=== PATIENT | male | born 1995 | race Caucasian/White ===

== ENCOUNTER 2023-06-12 20:38 | Inpatient (IN) | payer MEDICAID, SELFPAY ==
--- NOTE | ~2023-06-12 | MR_ITS ---
MRI of the cervical spine Clinical History: Neck pain, radiculopathy Technique: Axial T2-weighted and gradient images, and sagittal T1-weighted, T2-weighted, and STIR prema ges were acquired. Following intravenous administration of 15 cc MultiHance gadolinium, T1-weighted f at-sat imaging was performed in the axial and sagittal planes. Findings: There is no fracture or subluxation of the cervical spine. Vertebral bodies maintain normal height. No suspicious bone marrow signal abnormality seen. No significant disc bulge or herniation seen at any cervical level. There is probable minimal facet a rthropathy at C4-C5, possible minimal bilateral neural foraminal narrowing. No other spinal canal stu nosis or neural foraminal narrowing evident in the remainder of the cervical spine. No epidural mass or collection seen. No abnormal signal seen in the spinal cord. No abnormal postcontrast enhancement identified. Impression: Probable minimal degenerative spondylosis at C4-C5, as above. Reviewed, dictated and finalized at [facility]. Impression: Probable minimal degenerative spondylosis at C4-C5, as above.
--- NOTE | ~2023-06-12 | CT_ITS ---
EXAMINATION: CTA brain carotid DATE: 06/12/2023 23:50 INDICATION: Headache TECHNIQUE: Computed tomographic angiography (CTA) of the head was performed without and with 200 mL O mnipaque-350 intravenous contrast. CTA of the neck was performed with intravenous contrast. The dose- length product was 2087.23 mGy-cm. Maximum intensity projection and volume rendered 3D-reconstruction s were created by the technologist on a separate workstation. Automated exposure control and iterativ e reconstruction technique were employed. COMPARISON: None. FINDINGS: HEAD CTA: There is no intracranial hemorrhage, acute infarction, or abnormal mass lesion. The ventric les are normal. There is no abnormal mass effect or midline shift. The velázquez-white matter differentiat ion is normal. The basal cisterns are patent. The orbits are normal. The paranasal sinuses, mastoids and calvarium are normal. There is no significant stenosis of the basilar artery or posterior cerebral arteries. There is no si gnificant stenosis of the intracranial internal carotid arteries or the anterior or middle cerebral a rteries. The anterior communicating artery and posterior communicating arteries are normal. There is no aneurysm. NECK CTA: The thyroid gland is unremarkable. The submandibular and parotid glands are symmetric. Ther e is no lymphadenopathy. There are no masses identified. The airway is unremarkable. The superior med iastinum is unremarkable. There are no osseous abnormalities. There is 0% stenosis of the proximal right internal carotid artery relative to normal distal artery l umen diameter (NASCET criteria). There is 0% stenosis of the proximal left internal carotid artery re lative to normal distal artery lumen diameter. IMPRESSION: 1. No acute intracranial abnormality. Normal head CTA. 2. 0% stenosis of the proximal right internal carotid artery relative to normal distal artery lumen d iameter (NASCET criteria). 3. 0% stenosis of the proximal left internal carotid artery relative to normal distal artery lumen di ameter. Reviewed, dictated and finalized at location [facility]. IMPRESSION: 1. No acute intracranial abnormality. Normal head CTA. 2. 0% stenosis of the proximal right internal carotid artery relative to normal distal artery lumen diameter (NASCET criteria). 3. 0% stenosis of the proximal left internal carotid artery relative to normal distal artery lumen diameter.
--- NOTE | ~2023-06-12 | NM_ITS ---
EXAMINATION: NM stress w perf spect multi DATE: 06/14/2023 14:34 INDICATION: Chest pain. TECHNIQUE: Rest images were obtained following intravenous administration of 9.7 mCi Tc99m tetrofosmi n (Myoview). The patient performed an exercise activity. At peak exercise, 31.054 mCi Tc99m tetrofosm in (Myoview) was administered intravenously, and supine and prone stress images were obtained. Data w as reconstructed into short axis and horizontal and vertical long axis SPECT images. Gated SPECT imag es were also obtained. COMPARISON: Chest CT 06/12/2023 FINDINGS: There is a large, severe, partially reversible perfusion defect involving left ventricular apex, apical inferior and apical lateral segments, and apical to mid anterior segments, consistent wi th mixed infarct and ischemia.. There is no segmental wall motion abnormality. Left ventricular eje ction fraction measures 65%. IMPRESSION: 1. Large area of severe mixed ischemia and infarct involving left ventricular apex, apical inferior a nd apical lateral segments, and apical to mid anterior segments.. 2. Normal left ventricular ejection fraction measuring 65%. Reviewed, dictated and finalized at location [facility]. IMPRESSION: 1. Large area of severe mixed ischemia and infarct involving left ventricular a pex, apical inferior and apical lateral segments, and apical to mid anterior se gments.. 2. Normal left ventricular ejection fraction measuring 65%.
--- NOTE | ~2023-06-12 | XR_ITS ---
EXAMINATION: XR chest 2V DATE: 06/12/2023 21:37 INDICATION: Chest pain TECHNIQUE: PA and lateral views of the chest are obtained. COMPARISON: None available FINDINGS: The lungs are free of acute opacities. No pleural effusion or pneumothorax. The cardiomedia stinal silhouette is normal. The visualized bones and soft tissues are unremarkable. IMPRESSION: 1. No acute cardiopulmonary abnormality. Reviewed, dictated and finalized at location [facility].
--- NOTE | ~2023-06-12 | CT_ITS ---
EXAMINATION: CTA chest PE protocol DATE: 06/12/2023 23:51 INDICATION: Chest pain TECHNIQUE: Computed tomography angiography (CTA) of the chest was performed with 200 mL Omnipaque-350 intravenous contrast timed to evaluate the pulmonary arteries. Coronal maximum intensity projection 3D-reconstructions were created by the technologist. The dose-length product (DLP) was 516.69 mGy-cm. Automated exposure control and iterative reconstruction technique were employed. COMPARISON: None. FINDINGS: The pulmonary arteries are well-opacified. No pulmonary embolism is identified. There is mi ld dependent atelectasis. The lungs are free of focal airspace opacities. No pleural effusion or pneu mothorax. No pathologically enlarged thoracic lymph nodes are identified. The heart size is normal. IMPRESSION: 1. No pulmonary embolism or acute cardiopulmonary abnormality. Reviewed, dictated and finalized at location [facility].
--- NOTE | ~2023-06-12 | MR_ITS ---
MRI of the brain Clinical History: Upper extremity numbness Technique: Axial and sagittal T1-weighted images were acquired. These were followed by axial T2-weigh juan m, diffusion weighted, gradient, and FLAIR images. Following intravenous administration of 15 cc Mu ltiHance gadolinium, T1-weighted fat-sat imaging was performed in the axial, coronal, and sagittal pl anes. Findings: There is no abnormal signal in the brain parenchyma. No acute infarct, intracranial hemorrh age, or mass lesion. Prominent cisterna magna noted. Ventricles and subarachnoid spaces are otherwise unremarkable. Orbits are unremarkable. Paranasal sinuses and mastoid air cells are clear. Major intracranial flow voids a re intact. Sagittal midline structures are intact. No abnormal postcontrast enhancement identified. IMPRESSION: Prominent cisterna magna, otherwise unremarkable exam. Reviewed, dictated and finalized at [facility].
--- NOTE | 2023-06-12 20:40 | ECG_ITS ---
Measurements Intervals [place] Rate: 87 P: 39 OK: 119 QRS: 8 QRSD: 94 T: 112 QT: 334 QTc: 404 Interpretive Statements SINUS RHYTHM WITH SHORT OK INTERVAL ABNORMAL ECG ABNORMAL QRS-T ANGLE [QRS-T AXIS DIFFERENCE > 60] NO PREVIOUS ECG AVAILABLE FOR COMPARISON Electronically Signed On 06-13-2023 10:28:15 CDT by Joey Lr M.D.
[2023-06-12 20:47] VITALS: BP 134/88; PULSE 87; RESP 16; TEMP 36.5; O2SAT 100
[2023-06-12 20:59] LABS: Basophils Absolute Auto 0.1 K/mm3 (0.0-0.1); Basophils Percent Auto 0.6 % (0.2-1.2); Eosinophils Absolute Auto 0.1 K/mm3 (0-0.3); Eosinophils Percent Auto 0.8 % (0-4.4); Hematocrit 48.1 % (42.0-52.0); Hemoglobin 16.7 g/dL (14.0-18.0); Immature Granulocyte Absolute 0.03 K/mm3 (0.00-0.031); Immature Granulocyte Percent A 0.3 % (0-0.5); Lymphocytes Absolute Auto 3.67 K/mm3 (0.9-3.2); Mean Corpuscular HGB Conc 34.7 g/dl (32-36); Mean Corpuscular Hemoglobin 31.9 pg (26-34); Mean Corpuscular Volume 91.8 fl (80-100); Mean Platelet Volume 9.6 fl (7.4-10.4); Monocytes Absolute Auto 0.8 K/mm3 (0.1-0.6); Monocytes Percent Auto 6.7 % (2.6-8.5); Neutrophils Absolute Auto 6.5 K/mm3 (1.3-6.7); Neutrophils Percent Auto 58.6 % (45.5-73.1); Platelet Count Result 263 k/mm3 (150-375); Red Blood Count 5.24 M/mm3 (4.6-6.20); Red Cell Distribution Width 12.1 % (11.5-14.5); White Blood Count 11.1 K/mm3 (4.5-10.0)
[2023-06-12 21:07] LABS: Alanine Aminotransferase 24 U/L (6-50); Albumin Level 4.9 g/dL (3.5-5.1); Alkaline Phosphatase 66 U/L (38-126); Anion Gap 8 mmol/L (8-16); Aspartate Amino Transferase 37 U/L (17-59); Bilirubin,Total 0.6 mg/dL (0.2-1.3); Blood Urea Nitrogen 12 mg/dL (9-20); Calcium 9.4 mg/dL (8.4-10.2); Carbon Dioxide 25 mmol/L (22-30); Chloride 101 mmol/L (98-107); Estimated CRCL calculation 111 ml/min; Estimated Glomerular Filt Rate > 60; Glucose 94 mg/dL (65-110); Lipase 151 U/L (23-300); Potassium 3.5 mmol/L (3.4-5.0); Sodium 134 mmol/L (137-145)
[2023-06-12 21:08] LABS: Prothrombin Time 13.9 Seconds (11.1-14.7)
[2023-06-12 21:09] LABS: Partial Thromboplastin Time 29.2 SECONDS (22.3-36.8)
[2023-06-12 21:22] LABS: Troponin I 0.488 ng/mL (0.000-0.034)
--- NOTE | 2023-06-12 21:46 | ED.ARRPALP ---
HPI - Arrhythmia/Palpitations General Chief Complaint: Arrhythmia/Palpitations Stated Complaint: palpitations and CP x several days Time Seen by Provider: 06/12/23 21:41 History of Present Illness HPI narrative: Patient presents the emergency department from home with a friend. He has had intermittent episodes of left-sided chest burning that radiates into his left arm for the past 4 days. Episodes last 10 minutes at a time roughly. Then 2 days ago he had an episode of left arm going cold . Associated with a severe left-sided headache. Headache has resolved. He also felt short of breath at that time. Denies past medical history. Related Data Allergies Allergy/AdvReac Type Severity Reaction Status Date / Time No Known Allergies Allergy Verified 06/12/23 21:55 Review of Systems Review of Systems: Review of systems negative except what is documented in the HPI Exam Narrative: GENERAL: Well-appearing, well-nourished, and in no acute distress. HEAD: Normocephalic, atraumatic. EYES: PERRLA and EOMI. ENT: Nares clear, no rhinorrhea or epistaxis. Mucous membranes moist. NECK: Supple. CHEST: Clear to auscultation. No respiratory distress. HEART: Regular rate and rhythm. ABDOMEN: Soft, nontender, nondistended. EXTREMITIES: Normal range of motion. No edema. SKIN: Warm, dry, no rash. NEURO: No focal deficits. Alert and oriented x3. PSYCH: Normal mood and affect. Course Course Emergency Course: CT head and chest negative for acute pathology. His repeat troponin was slightly lower than initial troponin. Due to elevated troponins and chest discomfort for the past few days patient is admitted to observation to be seen by cardiology in the morning. We will hold heparin drip due to downtrending troponin Vital Signs Vital signs: Vital Signs Temperature 36.5 C 06/12/23 20:47 Pulse Rate 87 06/12/23 20:47 Respiratory Rate 16 06/12/23 20:47 Blood Pressure 134/88 06/12/23 20:47 Pulse Oximetry 100 06/12/23 20:47 Temperature 36.5 C 06/12/23 20:47 Pulse Rate 82 06/13/23 00:25 Respiratory Rate 15 06/13/23 00:25 Blood Pressure 123/81 06/13/23 00:25 Pulse Oximetry 100 06/13/23 00:25 MDM - Arrhythmia/Palpitations MDM Narrative Medical decision making narrative: CBC ordered and grossly unremarkable. White blood cell count 11. CMP also ordered and unremarkable. Troponin 0.488. Very unlikely to be CAD. CT chest and head ordered [address] chest and head CT are grossly unremarkable. Troponins are still elevated but trending down. Will admit for observation and cardiology consult tomorrow. He has not had any active chest pain and due to troponin trending down we will hold heparin for now Lab Data 06/12/23 20:52 06/12/23 20:52 Labs: Lab Results 06/12/23 06/13/23 06/13/23 Range/Units 20:52 00:01 01:15 WBC 11.1 H (4.5-10.0) K/mm3 RBC 5.24 (4.6-6.20) M/mm3 Hgb 16.7 (14.0-18.0) g/dL Hct 48.1 (42.0-52.0) % MCV 91.8 (80-100) fl MCH 31.9 (26-34) pg MCHC 34.7 (32-36) g/dl RDW 12.1 (11.5-14.5) % Plt Count 263 (150-375) k/mm3 MPV 9.6 (7.4-10.4) fl Immature Gran % (Auto) 0.3 (0-0.5) % Neut % (Auto) 58.6 (45.5-73.1) % Lymph % (Auto) 33.0 (18.3-44.2) % Leake % (Auto) 6.7 (2.6-8.5) % Eos % (Auto) 0.8 (0-4.4) % Baso % (Auto) 0.6 (0.2-1.2) % Lymph # (Auto) 3.67 H (0.9-3.2) K/mm3 Leake # (Auto) 0.8 H (0.1-0.6) K/mm3 Eos # (Auto) 0.1 (0-0.3) K/mm3 Baso # (Auto) 0.1 (0.0-0.1) K/mm3 Abs Immat Gran (auto) 0.03 (0.00-0.031) K/mm3 Absolute Neuts (auto) 6.5 (1.3-6.7) K/mm3 Absolute Nucleated RBC 0.0 (0.0-0.012) K/mm3 Nucleated RBC % 0.0 (0.0-0.2) % PT 13.9 (11.1-14.7) Seconds INR 1.0 APTT 29.2 (22.3-36.8) SECONDS Sodium 134 L (137-145) mmol/L Potassium 3.5 (3.4-5.0) mmol/L Chloride 101 (98-107) mmol/L C
[2023-06-12 21:49] VITALS: PULSE 89
[2023-06-12 21:50] VITALS: BP 153/94; PULSE 86; RESP 18; O2SAT 99
[2023-06-12 22:32] VITALS: BP 132/87; PULSE 92; RESP 14; O2SAT 98
[2023-06-13] VITALS (18 sets, daily range): BP systolic 106–137; BP diastolic 71–93; PULSE 62–105; RESP 14–24; TEMP 36.4–36.9; O2SAT 97–100
--- NOTE | 2023-06-13 | ECHO_ITS ---
Patient Info Name: Jerry oTbias Age: 27 years : 1995 Gender: Male Ht: 74 in Wt: 165 lbs BSA: 1.97 m2 HR: 76 bpm BP: 106 / 71 mmHg Heart Rhythm: Sinus Rhythm Technical Quality: Fair Exam Date: 06/13/2023 4:39 PM Exam Location: [facility] Pulmonary Patient Status: Inpatient Admit Date: 06/13/2023 Staff Ordering Physician: Joey Lr MD Electric Motor Assembler And Tester: Linda Hutchison RDCS Attending Provider: Teja Layne MD Referring Physician: Adeline NATARAJAN; Exam Type: CA echo dop color flow w con Study Info Indications R07.89 - Other chest pain Complete two-dimensional, color flow and Doppler transthoracic echocardiogram is performed with contrast to opacify the left ventricle and to improve the deliniation of the left ventricle endocardial borders. Contrast/Agitated Saline Contrast/Ag. Saline: Definity Amount: 2.00 ml Administered By: Linda Hutchison RDCS Existing IV Access: Yes IV Access Condition: patent with no signs of infiltration Summary 1. Left ventricular chamber dimension is normal. 2. Left ventricular systolic function is normal, estimated at 60-65%. 3. There is no increased left ventricular wall thickness. 4. The left ventricular diastolic function is normal. 5. No pulmonary hypertension, estimated pulmonary arterial systolic pressure is 32 mmHg. Left Ventricle Left ventricular chamber dimension is normal. Left ventricular systolic function is normal, estimated at 60-65%. There is no increased left ventricular wall thickness. The left ventricular diastolic function is normal. Right Ventricle Right ventricular chamber dimension is normal. Right ventricular systolic function is normal. Left Atria Left atrial chamber dimension is normal. Right Atria Right atrial chamber dimension is normal. Atrial Septum Intact interatrial septum visualized by color flow imaging. Aortic Valve The aortic valve is not well visualized due to positioning. There is no aortic valve stenosis. There is trace aortic valve regurgitation. Pulmonic Valve The pulmonic valve is normal. There is no pulmonic valve stenosis. There is trace pulmonic regurgitation. Mitral Valve The mitral valve has normal leaflets. There is no mitral valve stenosis. There is trace mitral valve regurgitation. Tricuspid Valve The tricuspid valve leaflets are normal. There is no significant tricuspid valve stenosis. There is trace tricuspid valve regurgitation. No pulmonary hypertension, estimated pulmonary arterial systolic pressure is 32 mmHg. Pericardium/Pleural The pericardium appears normal. There is no pericardial effusion. Inferior Vena Cava Normal inferior vena cava with >50% collapse upon inspiration consistent with normal right atrial pressure, 10 mmHg. Aorta The aortic root size at the sinus of Valsalva is normal. Left Ventricular Outflow Tract Name Value Normal LVOT 2D LVOT Diameter 1.97 cm LVOT Doppler LVOT Peak Gradient 3 mmHg LVOT Mean Gradient 1 mmHg LVOT VTI 13.98 cm LVOT VTI/AV VTI Ratio 0.91 LVOT Stroke
[2023-06-13 00:39] LABS: Troponin I 0.339 ng/mL (0.000-0.034)
[2023-06-13 01:53] LABS: Amphetamine Screen Urine Negative (Negative); Barbiturate Screen Urine Negative (Negative); Benzodiazepines Screen Urine Negative (Negative); Cannabinoid Screen Urine Positive (Negative); Cocaine Screen Urine Negative (Negative); Methadone Screen Urine Negative (Negative); Opiate Screen Urine Negative (Negative); Phencyclidine Screen Urine Negative (Negative)
[2023-06-13 03:39] LABS: Troponin I 0.425 ng/mL (0.000-0.034)
--- NOTE | 2023-06-13 04:26 | ADMGEN ---
This patient, Jerry Tobias, was admitted to IMU Room 200-01. Patient/family oriented to hospital policies and general routines including ID bracelet, bed and alarms, visiting hours, pain management, procedures, bathroom and other care routines, personal items, smoking policy, room service/diet, and visiting hours. Information on how to activate the Rapid Response Team has been discussed. Patient/Family are encouraged to report perceived risks to care and to ask questions if they do not understand what they are told or what they should do.
[2023-06-13] MEDS: HEPARIN SOD/D5W 100 UNITS/ML 25,000 UNITS/250 ML BAG 9 UNITS IV CONT (04:34)
[2023-06-13] MEDS: HEPARIN SODIUM 5,000 UNITS/ML VIAL 4000 UNITS IV PUSH ×2 (04:38→11:19)
[2023-06-13 05:22] LABS: Prothrombin Time 13.5 Seconds (11.1-14.7)
[2023-06-13 05:23] LABS: Basophils Absolute Auto 0.1 K/mm3 (0.0-0.1); Basophils Percent Auto 0.6 % (0.2-1.2); Eosinophils Absolute Auto 0.1 K/mm3 (0-0.3); Eosinophils Percent Auto 0.6 % (0-4.4); Hematocrit 49.3 % (42.0-52.0); Hemoglobin 16.9 g/dL (14.0-18.0); Immature Granulocyte Absolute 0.04 K/mm3 (0.00-0.031); Immature Granulocyte Percent A 0.4 % (0-0.5); Lymphocytes Absolute Auto 3.84 K/mm3 (0.9-3.2); Lymphocytes Percent Auto 34.9 % (18.3-44.2); Mean Corpuscular HGB Conc 34.3 g/dl (32-36); Mean Corpuscular Hemoglobin 31.5 pg (26-34); Mean Platelet Volume 10.2 fl (7.4-10.4); Monocytes Absolute Auto 0.8 K/mm3 (0.1-0.6); Monocytes Percent Auto 7.4 % (2.6-8.5); Neutrophils Absolute Auto 6.2 K/mm3 (1.3-6.7); Neutrophils Percent Auto 56.1 % (45.5-73.1); Partial Thromboplastin Time 30.2 SECONDS (22.3-36.8); Platelet Count Result 295 k/mm3 (150-375); Red Blood Count 5.36 M/mm3 (4.6-6.20); Red Cell Distribution Width 12.3 % (11.5-14.5)
[2023-06-13 11:11] LABS: Partial Thromboplastin Time 44.3 SECONDS (22.3-36.8)
--- NOTE | 2023-06-13 13:43 | PM.CNCAR ---
Assessment and Plan Assessment and plan (1) Acute non-ST elevation myocardial infarction (NSTEMI): Code(s): I21.4 - Non-ST elevation (NSTEMI) myocardial infarction Status: Acute Assessment and Plan: Patient has elevated troponin. Uncertain etiology. Probably related to pericarditis. Cannot exclude a mild pericarditis. Also his risk for ACS from plaque rupture is very small but not completely excluded at this point either. Will order 2D echocardiogram with Doppler, CRP, ESR. Will also order an JANKI panel and he may need to see an care or p-ANCA given the fact that he felt his arm go cold thinking about an arteritis but will defer this workup until other information is obtained. Will start him on metoprolol tartrate 12.5 mg p.o. b.i.d., aspirin 81 mg p.o. daily check a lipid panel. Discontinue his heparin for now and give him a dose of Toradol 15 mg IV times 1 (2) Marijuana use: Code(s): F12.90 - Cannabis use, unspecified, uncomplicated Status: Acute Assessment and Plan: Probably not significant alert to his symptoms (3) Palpitation: Code(s): R00.2 - Palpitations Status: Acute Assessment and Plan: He does have a short MS interval. Will keep him on telemetry (4) Chest pain: Code(s): R07.9 - Chest pain, unspecified Status: Acute Assessment and Plan: As detailed above. Chest pain is of uncertain etiology at this point. Possibly pericarditis History of Present Illness History of Present Illness Consult date/time: 06/13/23 13:43 Requesting physician: Cynthia Erwin MD Consult reason: chest pain and Other (Non-STEMI) Reason For Visit: NSTEMI Narrative: Reason for consultation: Non-STEMI, elevated troponins Requesting provider: Dr. Erwin Date of service 06/13/2023 History: Patient is a 27-year-old male without any cardiac history. He states he has been having some worsening palpitations over the past couple of months. Palpitations feel like skipped beats. Last week though he started to have some worrisome symptoms including severe heartburn in his chest as well as some severe burning and bilateral forearms at the same time is having the burning in his chest. His symptoms wax and wane over by 5-15 minute time frame. He was short of breath. His symptoms did seem to be a little bit better feeling forward. Following these episodes, he had an episode in which his left arm went cold any felt a wave over his chest. He also had some shivering. He also had some tingling involving his ulnar distribution left arm. He then had some overall generalized achiness in his arms and shoulders the following day. Prior to coming in here though he felt another more severe episode of heartburn and bilateral forearm burning and he decided to come the hospital for further workup evaluation. He denies any syncope. No paroxysmal nocturnal dyspnea orthopnea. No edema. Review of Systems Review of Systems: All systems reviewed & are unremarkable except as noted in HPI and below Constitutional: Constitutional: Denies body ache(s) Eyes: Eyes: Denies blurry vision ENT: Reports Normal hearing present Cardiovascular: Cardiovascular: Reports chest pain Respiratory: Respiratory: Denies hemoptysis Gastrointestinal: Gastrointestinal: Denies abdominal pain Genitourinary: Genitourinary: Denies hematuria Musculoskeletal: Musculoskeletal: Denies back pain Integumentary/Breasts: Skin/Breast: Denies dry skin Neurologic: Denies Abnormal speech present Psychiatric: Psychiatric: Denies anxiety Endocrine: Endocrine: Denies excessive sweating Hematologic/Lymphatic: Hematologic/Lymphatic: Denies easy bleeding Allergic/Immunologic: Allergic/Immunologic: Denies GI upset with certain foods PMFSH Past Medical History Medical History Marijuana use Family History Family History (Updated 06/13/23 @ 13:47 by Joey Lr MD) Father Carcinoma of colo
[2023-06-13] MEDS: KETOROLAC 15 MG/ML VIAL (*BKC) IV PUSH (14:30)
[2023-06-13] MEDS: NICOTINE (*PBKC) 21 MG PATCH 1 PATCH TRANSDERM (15:10)
[2023-06-13] MEDS: PERFLUTREN LIPID MICROSPHERES 1.5 ML VIAL DILUTED TO 10 ML TOTAL VOLUME IV PUSH (17:00)
--- NOTE | 2023-06-13 17:14 | PM.IMHP ---
H&P: HPI History of Present Illness Date/Time: 06/13/23 17:14 Chief Complaint: Palpitations Neck pain upper extremities numbness Narrative: 27 yo male with no significant past medical history, who presented to the ER on account of chest pain and palpitations. Patient stated that he started having palpitations on Sunday associated with the chest pressure none bony pain. These episodes intermittent, asymptomatic noted neck pain with radiation to bilateral upper extremities associated with the numbness the tingling. Symptoms has been intermittent. However into the day yesterday symptoms worsened prompting him to present to the ER for poor condition and care Denies any abdominal pain, no vomiting, no nausea lower extremity weakness no dysuria no loss of consciousness. Labs in the interval troponin 0.425, white count 11, urine drug screen positive for cannabinoids. CT head and neck CT chest, CTA head and neck unremarkable. Cardiology evaluation noted, so the patient on 12.5 mg metoprolol, echo pending. Review of Systems Review of Systems: All systems reviewed & are unremarkable except as noted in HPI and below PMFSH Past Medical History Medical History Marijuana use Family History Family History (Updated 06/13/23 @ 13:47 by Joey Lr MD) Father Carcinoma of colon Social History Social History Smoking packs per day: 1 Smoking cigarettes per day: 20.0 Years smoked: 5 Smoking pack-years: 5.00 Smoking status: Current every day smoker Tobacco type: cigarettes Alcohol intake: current Drinks per week: 4 Substance use: current Substance use type: marijuana Lack of Transportation: No Lack of Food: Sometimes True Current Housing: I Have Housing Concerned About Future Housing: No Difficulty Paying Gas/Electric Bills: No Difficulty Paying for Meds: No Currently Unemployed: YES Education: High School Diploma/GED Difficulty w/ Childcare or Family Care: No Spiritual care concerns: No Meds Home Medications and Allergies Home Medications Medication Instructions Recorded Confirmed Type No Home Medications 06/13/23 06/13/23 History Allergies Allergy/AdvReac Type Severity Reaction Status Date / Time No Known Allergies Allergy Verified 06/12/23 21:55 Vital Signs Vital Signs - 24 hr 06/12/23 20:47 06/12/23 21:49 06/12/23 21:50 Temperature 97.7 F Pulse Rate 87 89 86 Respiratory Rate 16 18 Blood Pressure 134/88 153/94 H Pulse Oximetry 100 99 Oxygen Delivery 06/12/23 22:32 06/13/23 00:25 06/13/23 02:05 Temperature Pulse Rate 92 82 77 Respiratory Rate 14 15 14 Blood Pressure 132/87 123/81 135/93 H Pulse Oximetry 98 100 100 Oxygen Delivery 06/13/23 03:39 06/13/23 03:51 06/13/23 04:12 Temperature 97.5 F L Pulse Rate 85 70 77 Respiratory Rate 20 24 H 18 Blood Pressure 120/78 120/78 131/81 Pulse Oximetry 98 97 99 Oxygen Delivery 06/13/23 04:30 06/13/23 05:57 06/13/23 07:57 Temperature 98.4 F Pulse Rate 75 64 65 Respiratory Rate 16 Blood Pressure 129/86 Pulse Oximetry 100 Oxygen Delivery 06/13/23 08:00 06/13/23 08:00 06/13/23 10:00 Temperature Pulse Rate 105 H 105 H 75 Respiratory Rate 16 Blood Pressure Pulse Oximetry 100 Oxygen Delivery Room Air 06/13/23 11:53 06/13/23 12:00 06/13/23 12:00 Temperature 98.4 F Pulse Rate 83 62 Respiratory Rate 14 Blood Pressure 106/71 Pulse Oximetry 99 Oxygen Delivery Room Air 06/13/23 14:00 06/13/23 16:00 06/13/23 16:00 Temperature Pulse Rate 70 72 Respiratory Rate Blood Pressure Pulse Oximetry Oxygen Delivery Room Air Exam Narrative: _ GENERAL: Well-appearing, well-nourished, and in no acute distress. HEAD: Normocephalic, atraumatic. EYES: PERRLA and EOMI. ENT: Nares clear, no rhinorrhea or epistaxis.? Mucous membranes moist. NECK: Supple. CHEST: Clear to auscultation.? No respiratory distr
--- NOTE | 2023-06-13 17:28 | IVDEFINITY ---
Prior to administration of IV Definity the patient was educated on the risks and benefits of the imaging enhancing agent including potential adverse side effects. The patient verbalized understanding. Allergies were verified. No exclusion criteria were identified and at least one of the following inclusion criteria were met: 1) physician request, 2) patient technically difficult to image (per the [place] [employer] guidelines of two or more segments not discernable within the apical view), or 3) questionable left ventricular function. ?
[2023-06-13 17:54] LABS: Partial Thromboplastin Time 28.3 SECONDS (22.3-36.8)
[2023-06-13 18:08] LABS: CRP < 0.5 mg/dL (<1.0); Cholesterol 263 mg/dL (0-200); HDL Direct 47 mg/dL; Triglycerides 119 mg/dL (<150)
[2023-06-13 18:16] LABS: LDL Cholesterol Direct 172 mg/dL
[2023-06-13 18:45] LABS: Erythrocyte Sedimentation Rate 1 mm/hr (0-20)
[2023-06-14] VITALS (19 sets, daily range): BP systolic 113–129; BP diastolic 62–86; PULSE 54–95; RESP 15–18; TEMP 36.2–36.8; O2SAT 99–100
--- NOTE | 2023-06-14 | EST_ITS ---
Patient Info Name: Jerry Tobias Age: 27 years : 1995 Gender: Male Ht: 74 in Wt: 165 lbs BSA: 1.97 m2 HR: 65 bpm BP: 129 / 74 mmHg Heart Rhythm: Sinus Rhythm Exam Date: 06/14/2023 1:24 PM Exam Location: [facility] Stress Patient Status: Inpatient Admit Date: 06/13/2023 Staff Ordering Physician: Miguel Angel Simon MD Attending Provider: Teja Layne MD Exercise Technologist: Raquel Cunningham CT Nurse: Sirena Aparicio APN Exam Type: CA stress test treadmill w NM Study Info Indications R07.89 - Other chest pain A nuclear stress test was performed. Summary 1. Exercise capacity very good at >10 METS. 2. No abnormal ST/T wave changes diagnostic of ischemia with exercise. 3. Please correlate with nuclear medicine images, reported separately. 4. Stress test supervised by Sirena Aparicio NP. Stress test interpreted by Miguel Angel Simon MD. Protocol: [place] Stress ECG Details Stage: REST Duration (min): 0 min : 59 sec Speed (mph): 0.0 Grade (%): 0 HR (bpm): 66 SBP (mmHg): 129 DBP (mmHg): 74 METS: --- Stage: REST Duration (min): 7 min : 23 sec Speed (mph): 0.0 Grade (%): 0 HR (bpm): 85 SBP (mmHg): 129 DBP (mmHg): 74 METS: --- Stage: STAGE 1 Duration (min): 1 min : 0 sec Speed (mph): 1.7 Grade (%): 10 HR (bpm): 96 SBP (mmHg): 129 DBP (mmHg): 74 METS: --- Stage: STAGE 1 Duration (min): 2 min : 0 sec Speed (mph): 1.7 Grade (%): 10 HR (bpm): 94 SBP (mmHg): 129 DBP (mmHg): 74 METS: --- Stage: STAGE 1 Duration (min): 3 min : 0 sec Speed (mph): 1.7 Grade (%): 10 HR (bpm): 94 SBP (mmHg): 157 DBP (mmHg): 67 METS: --- Stage: STAGE 2 Duration (min): 1 min : 0 sec Speed (mph): 2.5 Grade (%): 12 HR (bpm): 107 SBP (mmHg): 157 DBP (mmHg): 67 METS: --- Stage: STAGE 2 Duration (min): 2 min : 0 sec Speed (mph): 2.5 Grade (%): 12 HR (bpm): 116 SBP (mmHg): 157 DBP (mmHg): 74 METS: --- Stage: STAGE 2 Duration (min): 3 min : 0 sec Speed (mph): 2.5 Grade (%): 12 HR (bpm): 117 SBP (mmHg): 157 DBP (mmHg): 74 METS: --- Stage: STAGE 3 Duration (min): 1 min : 0 sec Speed (mph): 3.4 Grade (%): 14 HR (bpm): 133 SBP (mmHg): 177 DBP (mmHg): 78 METS: --- Stage: STAGE 3 Duration (min): 2 min : 0 sec Speed (mph): 3.4 Grade (%): 14 HR (bpm): 137 SBP (mmHg): 177 DBP (mmHg): 78 METS: --- Stage: STAGE 3 Duration (min): 3 min : 0 sec Speed (mph): 3.4 Grade (%): 14 HR (bpm): 139 SBP (mmHg): 172 DBP (mmHg): 89 METS: --- Stage: STAGE 4 Duration (min): 1 min : 0 sec Speed (mph): 4.2 Grade (%): 16 HR (bpm): 158 SBP (mmHg): 172 DBP (mmHg): 89 METS: --- Stage: STAGE 4 Duration (min): 2 min : 0 sec Speed (mph): 4.2 Grade (%): 16 HR (bpm): 171 SBP (mmHg): 177 DBP (mmHg): 100 METS: --- Stage: STAGE 4 Duration (mi
[2023-06-14 05:19] LABS: Basophils Absolute Auto 0.1 K/mm3 (0.0-0.1); Eosinophils Absolute Auto 0.1 K/mm3 (0-0.3); Eosinophils Percent Auto 1.3 % (0-4.4); Hematocrit 49.6 % (42.0-52.0); Hemoglobin 16.8 g/dL (14.0-18.0); Immature Granulocyte Absolute 0.03 K/mm3 (0.00-0.031); Immature Granulocyte Percent A 0.4 % (0-0.5); Lymphocytes Absolute Auto 3.76 K/mm3 (0.9-3.2); Mean Corpuscular HGB Conc 33.9 g/dl (32-36); Mean Corpuscular Hemoglobin 31.6 pg (26-34); Mean Corpuscular Volume 93.4 fl (80-100); Mean Platelet Volume 10.3 fl (7.4-10.4); Monocytes Absolute Auto 0.7 K/mm3 (0.1-0.6); Monocytes Percent Auto 8.4 % (2.6-8.5); Neutrophils Absolute Auto 3.2 K/mm3 (1.3-6.7); Neutrophils Percent Auto 40.9 % (45.5-73.1); Platelet Count Result 242 k/mm3 (150-375); Red Blood Count 5.31 M/mm3 (4.6-6.20); Red Cell Distribution Width 12.3 % (11.5-14.5); White Blood Count 7.8 K/mm3 (4.5-10.0)
[2023-06-14 05:32] LABS: Alanine Aminotransferase 25 U/L (6-50); Albumin Level 4.8 g/dL (3.5-5.1); Alkaline Phosphatase 58 U/L (38-126); Anion Gap 9 mmol/L (8-16); Aspartate Amino Transferase 33 U/L (17-59); Blood Urea Nitrogen 14 mg/dL (9-20); Calcium 9.7 mg/dL (8.4-10.2); Carbon Dioxide 27 mmol/L (22-30); Chloride 100 mmol/L (98-107); Estimated CRCL calculation 115 ml/min; Estimated Glomerular Filt Rate > 60; Glucose 81 mg/dL (65-110); Magnesium 2.3 mg/dL (1.6-2.3); Potassium 3.8 mmol/L (3.4-5.0); Sodium 136 mmol/L (137-145)
[2023-06-14 05:40] LABS: Lactic Acid Reflex 0.9 mmol/L (0.7-2.0)
[2023-06-14] MEDS: METOPROLOL TARTRATE 12.5 MG TABLET PO ×3 (06:15→20:35)
[2023-06-14] MEDS: ASPIRIN 81 MG ENTERIC TABLET PO (10:02)
[2023-06-14] MEDS: ENOXAPARIN 40 MG/0.4 ML SYRINGE SUB-Q (10:02)
--- NOTE | 2023-06-14 12:16 | PM.PNCARD ---
Progress Note: A&P Assessment and Plan (1) Acute non-ST elevation myocardial infarction (NSTEMI): Code(s): I21.4 - Non-ST elevation (NSTEMI) myocardial infarction Status: Acute Assessment and Plan: Patient has elevated troponin with peak of 0.488 and overall relatively flat levels.? Uncertain etiology.? Thought to be possibly from pericarditis, however, both ESR and CRP are negative, no pericardial effusion on echo. Therefore, I do not think it's pericarditis. His risk for ACS from plaque rupture is very small but not completely excluded at this point either. Echocardiogram reviewed and shows LVEF 60-65% without any significant abnormality. At this point, continue with ASA, Metoprolol. Given his symptoms with elevated troponin of unclear etiology, and although his risk for coronary disease is lower given his age, we cannot completely exclude CAD. I discussed and recommended cardiac catheterization for delineation of coronary anatomy, discussed with procedure indications with the patient, procedure details, risks vs benefits, and alternative management options. After discussing with the patient, patient prefers non-invasive method for assessing for CAD rather than undergo cardiac cath at this time. He is agreeable to cath if non-invasive method shows abnormality or if his symptoms worsen in the meantime. Therefore, will obtain treadmill nuclear stress test. (2) Marijuana use: Code(s): F12.90 - Cannabis use, unspecified, uncomplicated Status: Acute Assessment and Plan: Probably not significantly related to his symptoms (3) Palpitation: Code(s): R00.2 - Palpitations Status: Acute Assessment and Plan: He does have a short [place] interval.? Will keep him on telemetry. Also reports anxiety symptoms which likely contribute to palpitations. (4) Chest pain: Code(s): R07.9 - Chest pain, unspecified Status: Acute Assessment and Plan: As detailed above.? Subjective Date/time seen: 06/14/23 12:16 Interval history: Reason for consult: Chest pain, elevated troponins HPI: Patient is a 27-year-old male without any cardiac history.? He states he has been having some worsening palpitations over the past couple of months.? Palpitations feel like skipped beats.? Last week though he started to have some worrisome symptoms including severe heartburn in his chest as well as some severe burning and bilateral forearms at the same time is having the burning in his chest.? His symptoms wax and wane over by 5-15 minute time frame.? He was short of breath.? His symptoms did seem to be a little bit better feeling forward.? Following these episodes, he had an episode in which his left arm went cold any felt a wave over his chest.? He also had some shivering.? He also had some tingling involving his ulnar distribution left arm.? He then had some overall generalized achiness in his arms and shoulders the following day.? Prior to coming in here though he felt another more severe episode of heartburn and bilateral forearm burning and he decided to come the hospital for further workup evaluation.? He denies any syncope.? No paroxysmal nocturnal dyspnea orthopnea.? No edema. Date of service 06/14: Patient is feeling much better this morning. Feels better after starting Metoprolol. No chest pain today. Review of Systems Review of Systems: All systems reviewed & are unremarkable except as noted in HPI and below (HPI) Exam Const: General: comfortable and no acute distress HENMT: Mouth: Yes moist mucous membranes Eyes: General: appearance normal, both eyes and all related structures Sclera: sclerae normal Neck: Neck: supple Resp: Effort & Inspection: normal respiratory effort Cardio: Rate: regular rate Rhythm: regular rhythm Skin: General skin exam: normal color Neuro: Speech: normal speech Psych: Mental Status: mental status grossly normal Affect: normal affect Objective Data Vital Sign
--- NOTE | 2023-06-14 14:13 | PM.IMPN ---
Progress Note: A&P Assessment and Plan (1) Chest pain: Code(s): R07.9 - Chest pain, unspecified Status: Acute (2) Palpitation: Code(s): R00.2 - Palpitations Status: Acute (3) Acute non-ST elevation myocardial infarction (NSTEMI): Code(s): I21.4 - Non-ST elevation (NSTEMI) myocardial infarction Status: Acute Plan Palpitations, chest pain Continue metoprolol cardiology Echo ? 1. Left ventricular chamber dimension is normal. ? 2. Left ventricular systolic function is normal, estimated at 60-65%. ? 3. There is no increased left ventricular wall thickness. ? 4. The left ventricular diastolic function is normal. ? 5. No pulmonary hypertension, estimated pulmonary arterial systolic pressure is 32 mmHg. obtain treadmill nuclear stress test revealed possible cardiac ischemia, manufacturing planner plans cardiac catheterization continue Metoprolol 12.5mg bid, and Aspirin Neck pain and upper extremity numbness or tingling Rule out stroke and spinal cord pathology CTA head and neck and chest were unremarkable MRI brain cervical spine ordered, it reveals Probable minimal degenerative spondylosis at C4-C5 Monitor cardiology following tobacco use counseled about tobacco cessation DVT prophylaxis Sq Lovenox Subjective Date/time seen: 06/14/23 14:13 Interval history: I saw exam patient today. Patient feels better today, denies chest pain, palpitation, abdomen pain, nausea vomiting diarrhea, focal weakness Exam Narrative: _ GENERAL: Well-appearing, well-nourished, and in no acute distress. HEAD: Normocephalic, atraumatic. EYES: PERRLA and EOMI. ENT: Nares clear, no rhinorrhea or epistaxis.? Mucous membranes moist. NECK: Supple. CHEST: Clear to auscultation.? No respiratory distress. HEART: Regular rate and rhythm. ABDOMEN: Soft, nontender, nondistended. EXTREMITIES: Normal range of motion.? No edema. SKIN: Warm, dry, no rash. NEURO: No focal deficits.? Alert and oriented x3. PSYCH: Normal mood and affect. Objective Data Vital Signs Vital Signs: Vital Signs - 24 hr 06/13/23 16:00 06/13/23 16:00 06/13/23 16:00 Temperature 98.1 F Pulse Rate 72 88 Respiratory Rate 16 Blood Pressure 124/75 Pulse Oximetry 99 Oxygen Delivery Room Air 06/13/23 18:00 06/13/23 20:11 06/13/23 20:00 Temperature 97.9 F Pulse Rate 93 84 83 Respiratory Rate 16 Blood Pressure 137/78 Pulse Oximetry 99 Oxygen Delivery 06/14/23 00:13 06/13/23 22:00 06/14/23 00:00 Temperature 97.1 F L Pulse Rate 54 L 74 76 Respiratory Rate 15 Blood Pressure 121/76 Pulse Oximetry 100 Oxygen Delivery 06/14/23 02:00 06/14/23 03:58 06/14/23 04:00 Temperature 97.9 F Pulse Rate 67 56 L 75 Respiratory Rate 16 Blood Pressure 125/83 Pulse Oximetry 100 Oxygen Delivery 06/14/23 06:00 06/14/23 06:15 06/14/23 07:52 Temperature 98.3 F Pulse Rate 61 69 73 Respiratory Rate 16 Blood Pressure 113/62 Pulse Oximetry 100 Oxygen Delivery 06/14/23 10:02 06/14/23 08:00 06/14/23 10:00 Temperature Pulse Rate 87 70 95 Respiratory Rate Blood Pressure Pulse Oximetry Oxygen Delivery 06/14/23 12:00 06/14/23 12:00 06/14/23 14:00 Temperature 98.2 F Pulse Rate 57 L 58 L 90 Respiratory Rate 16 Blood Pressure 114/71 Pulse Oximetry 100 Oxygen Delivery Intake/Output Intake/Output: Intake & Output 06/11/23 06/12/23 06/13/23 06/14/23 23:59 23:59 23:59 23:59 Intake Total 480 500 Balance 480 500 Meds/Results Medications: Active Medications Generic Name Dose Route Start Last Admin Trade Name Good PRN Reason Stop Dose Admin Aspirin 81 mg 06/14/23 09:00 06/14/23 10:02 Aspirin 81 Mg Enteric Tablet PO 81 mg QAM MISTY Administration Enoxaparin Sodium 40 mg 06/14/23 09:00 06/14/23 10:02 Enoxaparin 40 Mg/0.4 Ml Syringe SUB-Q 40 mg DAILY MISTY Administration Metoprolol Tartrate 12.5 mg 10
--- NOTE | 2023-06-14 14:36 | PCPTNOTE ---
Per RN, pt is independent in the room. Hospitalist agreed to DC orders at this time.
[2023-06-15] VITALS (39 sets, daily range): BP systolic 109–149; BP diastolic 67–96; PULSE 60–110; RESP 14–25; TEMP 36.3–36.8; O2SAT 97–100
[2023-06-15] MEDS: METOPROLOL TARTRATE 12.5 MG TABLET PO (08:31)
[2023-06-15] MEDS: ASPIRIN 81 MG ENTERIC TABLET PO (08:31)
--- NOTE | 2023-06-15 08:54 | WPDMODSED ---
Moderate Sedation Note-Pt Data Patient Data Diagnosis: Chest pain, troponin elevation abnormal nuclear stress test Present Complaint: this is a 27-year-old man admitted with an episode of chest pain with moderate troponin elevation. Nuclear stress test done yesterday suggests anterior ischemia. Procedure to be performed/Plan: Left heart catheterization Allergies Allergy/AdvReac Type Severity Reaction Status Date / Time No Known Allergies Allergy Verified 06/12/23 21:55 Home Medications Medication Instructions Recorded Confirmed Type No Home Medications 06/13/23 06/13/23 History Current Medications: Active Medications Aspirin (Aspirin 81 Mg Enteric Tablet) [facility] Admin: 06/15/23 08:31 Dose: 81 mg Enoxaparin Sodium (Enoxaparin 40 Mg/0.4 Ml Syringe) 40 mg SUB-Q DAILY [facility] Last Admin: 06/15/23 08:12 Dose: Not Given Metoprolol Tartrate (Metoprolol Tartrate 12.5 Mg Tablet) 12.5 mg PO Q12HR [facility] Last Admin: 06/15/23 08:31 Dose: 12.5 mg Nicotine (Nicotine (*Pbkc) 21 Mg Patch) 1 patch [facility] Last Admin: 06/13/23 15:10 Dose: 1 patch Sedation/Anesthesia: No previous sedation/anesthesia problems (including family history). [facility] Past Medical History Medical History Marijuana use Family History Family History (Updated 06/13/23 @ 13:47 by Joey Lr MD) Father Carcinoma of colon Social History Social History Smoking packs per day: 1 Smoking cigarettes per day: 20.0 Years smoked: 5 Smoking pack-years: 5.00 Smoking status: Current every day smoker Tobacco type: cigarettes Alcohol intake: current Drinks per week: 4 Substance use: current Substance use type: marijuana Lack of Transportation: No Lack of Food: Sometimes True Current Housing: I Have Housing Concerned About Future Housing: No Difficulty Paying Gas/Electric Bills: No Difficulty Paying for Meds: No Currently Unemployed: YES Education: High School Diploma/GED Difficulty w/ Childcare or Family Care: No Spiritual care concerns: No Mod Sed Physical Exam Physical Exam Pre Procedural Exam: Normal: Appearance, Throat, Airway, Lungs, Heart Size, Heart Rate, Heart Rhythm, Neuro Exam and Extremities Hours since solid foods: 12 Hours since liquid intake: 12 Mallampati Classification: class II Internal Medicine - PN: Obj Da Vital Signs Vital Signs: Vital Signs - 24 hr 06/14/23 10:02 06/14/23 10:00 06/14/23 12:00 Temperature 36.8 C Pulse Rate 87 95 57 L Respiratory Rate 16 Blood Pressure 114/71 Pulse Oximetry 100 Oxygen Delivery 06/14/23 12:00 06/14/23 14:00 06/14/23 16:00 Temperature 36.3 C L Pulse Rate 58 L 90 84 Respiratory Rate 16 Blood Pressure 129/82 Pulse Oximetry 100 Oxygen Delivery 06/14/23 16:00 06/14/23 18:00 06/14/23 20:00 Temperature 36.4 C Pulse Rate 88 85 71 Respiratory Rate 18 Blood Pressure 123/78 Pulse Oximetry 100 Oxygen Delivery 06/14/23 20:35 06/14/23 20:00 06/14/23 23:22 Temperature 36.2 C L Pulse Rate 75 67 Respiratory Rate 18 Blood Pressure 121/86 Pulse Oximetry 99 Oxygen Delivery Room Air 06/14/23 23:58 06/14/23 20:00 06/14/23 22:00 Temperature Pulse Rate 94 60 Respiratory Rate Blood Pressure Pulse Oximetry Oxygen Delivery Room Air 06/15/23 00:00 06/15/23 02:00 06/15/23 03:35 Temperature 36.3 C L Pulse Rate 75 75 62 Respiratory Rate 18 Blood Pressure 121/73 Pulse Oximetry 100 Oxygen Delivery 06/15/23 04:00 06/15/23 04:00 06/15/23 06:00 Temperature Pulse Rate 60 74 Respiratory Rate Blood Pressure Pulse Oximetry Oxygen Delivery Room Air 06/15/23 07:22 06/15/23 08:31 Temperature 36.4 C L Pulse Rate 110 H 87 Respiratory Rate 16 Blood Pressure 138/81 Pulse Oximetry 100 Oxygen Delivery Intake/Output Intake/Output: Intake & Output 06/12/23 06/13/23 06/14/23
--- NOTE | 2023-06-15 09:40 | PM.IMPN ---
Progress Note: A&P Assessment and Plan (1) Chest pain: Code(s): R07.9 - Chest pain, unspecified Status: Acute (2) Palpitation: Code(s): R00.2 - Palpitations Status: Acute (3) Acute non-ST elevation myocardial infarction (NSTEMI): Code(s): I21.4 - Non-ST elevation (NSTEMI) myocardial infarction Status: Acute Plan Palpitations, chest pain Continue metoprolol cardiology Echo ? 1. Left ventricular chamber dimension is normal. ? 2. Left ventricular systolic function is normal, estimated at 60-65%. ? 3. There is no increased left ventricular wall thickness. ? 4. The left ventricular diastolic function is normal. ? 5. No pulmonary hypertension, estimated pulmonary arterial systolic pressure is 32 mmHg. obtain treadmill nuclear stress test revealed possible cardiac ischemia, 07/16 cardiac catheterization 1.? ? Left coronary dominant circulation with single-vessel disease high-grade 95-99% stenosis in the long but smaller caliber diagonal branch of the LAD. 2.? ? Successful PCI of this lesion using the were 0 drug-eluting stent as described above which was post dilated with a 2.5 mm high-pressure balloon and angiographic result was very good. 3.? ? Preserved left ventricular systolic function continue Metoprolol 12.5mg bid, and Aspirin at Plavix since then 5 mg daily p.o. Neck pain and upper extremity numbness or tingling Rule out stroke and spinal cord pathology CTA head and neck and chest were unremarkable MRI brain cervical spine ordered, it reveals Probable minimal degenerative spondylosis at C4-C5 Monitor tobacco use counseled about tobacco cessation DVT prophylaxis Sq Lovenox Subjective Date/time seen: 06/15/23 09:40 Interval history: I saw exam patient today. Patient underwent a cardiac catheterization, denies chest pain, palpitation, abdomen pain, nausea vomiting diarrhea, focal weakness Exam Narrative: _ GENERAL: Well-appearing, well-nourished, and in no acute distress. HEAD: Normocephalic, atraumatic. EYES: PERRLA and EOMI. ENT: Nares clear, no rhinorrhea or epistaxis.? Mucous membranes moist. NECK: Supple. CHEST: Clear to auscultation.? No respiratory distress. HEART: Regular rate and rhythm. ABDOMEN: Soft, nontender, nondistended. EXTREMITIES: Normal range of motion.? No edema. SKIN: Warm, dry, no rash. NEURO: No focal deficits.? Alert and oriented x3. PSYCH: Normal mood and affect. Objective Data Vital Signs Vital Signs: Vital Signs - 24 hr 06/14/23 10:02 06/14/23 10:00 06/14/23 12:00 Temperature 98.2 F Pulse Rate 87 95 57 L Respiratory Rate 16 Blood Pressure 114/71 Pulse Oximetry 100 Oxygen Delivery 06/14/23 12:00 06/14/23 14:00 06/14/23 16:00 Temperature 97.3 F L Pulse Rate 58 L 90 84 Respiratory Rate 16 Blood Pressure 129/82 Pulse Oximetry 100 Oxygen Delivery 06/14/23 16:00 06/14/23 18:00 06/14/23 20:00 Temperature 97.6 F Pulse Rate 88 85 71 Respiratory Rate 18 Blood Pressure 123/78 Pulse Oximetry 100 Oxygen Delivery 06/14/23 20:35 06/14/23 20:00 06/14/23 23:22 Temperature 97.2 F L Pulse Rate 75 67 Respiratory Rate 18 Blood Pressure 121/86 Pulse Oximetry 99 Oxygen Delivery Room Air 06/14/23 23:58 06/14/23 20:00 06/14/23 22:00 Temperature Pulse Rate 94 60 Respiratory Rate Blood Pressure Pulse Oximetry Oxygen Delivery Room Air 06/15/23 00:00 06/15/23 02:00 06/15/23 03:35 Temperature 97.4 F L Pulse Rate 75 75 62 Respiratory Rate 18 Blood Pressure 121/73 Pulse Oximetry 100 Oxygen Delivery 06/15/23 04:00 06/15/23 04:00 06/15/23 06:00 Temperature Pulse Rate 60 74 Respiratory Rate Blood Pressure Pulse Oximetry Oxygen Delivery Room Air 06/15/23 07:22 06/15/23 08:31 06/15/23 09:09 Temperature 97.5 F L Pulse Rate 110 H 87 Respiratory Rate 16 Blood Pressure 138/81 Pulse Oximetry 100 100 Oxygen Deliv
--- NOTE | 2023-06-15 09:54 | ECG_ITS ---
Measurements Intervals [place] Rate: 67 P: 33 MD: 149 QRS: -7 QRSD: 81 T: 91 QT: 353 QTc: 374 Interpretive Statements SINUS RHYTHM WITH SINUS ARRHYTHMIA T-WAVE ABNORMALITY, CONSIDER ISCHEMIA Electronically Signed On 06-16-2023 17:06:39 CDT by [place] Albert M.D.
--- NOTE | 2023-06-15 09:57 | WPDCARDPROC ---
Cardiac Cath Procedure Note Date of procedure:: 06/15/23 Performing physician:: Channing Avila MD Indication:: acute coronary syndrome Brief clinical history:: this is a 27-year-old gentleman with a his family history of coronary disease smokes 2 came in the hospital with intermittent chest pain there has been a mild troponin rise indicating evidence of ACS. Stress testing showed significant area of anteroapical and anterolateral ischemia. Procedure Procedure performed:: Left ventriculography coronary angiography PCI(KAYY) to the diagonal branch of the LAD Sedation/Medication given:: fentanyl 50 mg Versed 2 mg case start time 9:01 a.m. case end time 9:45 a.m. sedation provided by Mary Lugo RN, trained observer Access site:: right femoral artery Estimated blood loss:: 20 cc Procedure note:: patient was brought to the mill laborer in the postabsorptive state where the right femoral triangle was prepared and draped in the usual fashion. Anesthesia was provided with 1% lidocaine infiltrated locally. Technique a 5 Luxembourger vascular sheath was placed into the femoral artery. Left heart catheterization was then carried out. A 5 Luxembourger angled pigtail catheter was used to document left-sided hemodynamics, pullback pressures across the aortic valve inject left ventriculogram in the ADAMS projection. Following this I used a standard 5 Luxembourger FL4 catheter to engage inject the left coronary artery in multiple projections. A 5 Luxembourger JR4 the right coronary artery. The cineangiograms were then reviewed and PCI of the diagonal branch the LAD was recommended and carried out as detailed below. Prior to PCI the 5 Luxembourger sheath was exchanged over guidewire for a 6 Luxembourger sheath. He was systemically anticoagulated for the procedure with intravenous bolus and infusion of Angiomax. He received 600 mg oral clopidogrel prior to PCI. Patient had been receiving aspirin on the floor and was given no additional aspirin prior to this procedure. Following PCI the sheath was sutured into position he has taken the holding area for manual sheath. Procedure was well tolerated and uncomplicated. There was no evidence of groin mill laborer. Findings:: Hemodynamics: Central aortic pressure is 122 over 72 left ventricle 122/0 end-diastolic pressure 14 there is no gradient on pullback across the aortic valve. Left ventricle: The left ventricle is in size all segments contract adequately the global ejection fraction is 50% by visual estimation the left main coronary artery is short and nicely patent the LAD is a medium caliber artery which extends down to around the apex. The LAD itself has about 20-30% stenosis in the midportion. The major diagonal branch is smaller in size but is quite long. This diagonal branch has a 95-99% stenosis in the midportion. Proximally there is mild plaquing at the ostium of the diagonal representing about 30-40% stenosis. Circumflex is a moderate caliber artery it is dominant to the posterior circulation. The circumflex, OM branches and posterior branches are unremarkable the right coronary artery is non dominant small in caliber giving rise to RV branch is and the right coronary has no atherosclerosis intervention: The left was engaged using a 6 Luxembourger CLS 3.5 guiding catheter. I used a 0.014 pilot boat captain 150 wire to wire the diagonal branch of the LAD. The lesion was pre-dilated using a 2.0 x 20 mm José Manuel balloon at nominal pressure. The target lesion was then stented using a 2.25 x 18 mm Orsiro device deployed at nominal pressure. The midportion of the stent was post dilated using a 2.5 x 12 mm José Manuel Pro Balloon at 14 atmospheres. target lesion was then widely patent with no residual stenosis. The Ostial segment of the diagonal which had previously had mild stenosis appeared to be worsened at least 80% stenosis. I then elected to use the same 2.5 x 12 mm balloon to dilate this segment which result
[2023-06-15] MEDS: SODIUM CHLORIDE 0.9% IV 1,000 ML 125 ML IV CONT (15:02)
[2023-06-15] MEDS: NICOTINE (*PBKC) 21 MG PATCH 1 PATCH TRANSDERM (23:16)
[2023-06-16] VITALS (9 sets, daily range): BP systolic 124–140; BP diastolic 74–88; PULSE 61–84; RESP 16–18; TEMP 36.1–36.9; O2SAT 98–100
--- NOTE | 2023-06-16 05:11 | ECG_ITS ---
Measurements Intervals [place] Rate: 67 P: 38 ID: [id number] QRS: 31 QRSD: 94 T: 105 QT: 381 QTc: 404 Interpretive Statements SINUS RHYTHM WITH SHORT ID INTERVAL NONSPECIFIC T-WAVE ABNORMALITY Electronically Signed On 06-17-2023 12:52:01 CDT by [place] Albert M.D.
--- NOTE | 2023-06-16 07:53 | PM.IMPN ---
Progress Note: A&P Assessment and Plan (1) Chest pain: Code(s): R07.9 - Chest pain, unspecified Status: Acute (2) Palpitation: Code(s): R00.2 - Palpitations Status: Acute (3) Acute non-ST elevation myocardial infarction (NSTEMI): Code(s): I21.4 - Non-ST elevation (NSTEMI) myocardial infarction Status: Acute Plan Palpitations, chest pain Continue metoprolol cardiology Echo ? 1. Left ventricular chamber dimension is normal. ? 2. Left ventricular systolic function is normal, estimated at 60-65%. ? 3. There is no increased left ventricular wall thickness. ? 4. The left ventricular diastolic function is normal. ? 5. No pulmonary hypertension, estimated pulmonary arterial systolic pressure is 32 mmHg. obtain treadmill nuclear stress test revealed possible cardiac ischemia, 07/16 cardiac catheterization 1.? ? Left coronary dominant circulation with single-vessel disease high-grade 95-99% stenosis in the long but smaller caliber diagonal branch of the LAD. 2.? ? Successful PCI of this lesion using the were 0 drug-eluting stent as described above which was post dilated with a 2.5 mm high-pressure balloon and angiographic result was very good. 3.? ? Preserved left ventricular systolic function continue Metoprolol 12.5mg bid, and Aspirin at Plavix since then 5 mg daily p.o. 07/17 No chest pain, shortness breast, palpitation, needle insertion site and right groin I small ecchymosis no hematoma. Patient is afebrile, blood pressure stable Neck pain and upper extremity numbness or tingling Rule out stroke and spinal cord pathology CTA head and neck and chest were unremarkable MRI brain cervical spine ordered, it reveals Probable minimal degenerative spondylosis at C4-C5 Monitor tobacco use counseled about tobacco cessation DVT prophylaxis Sq Lovenox Subjective Date/time seen: 06/16/23 07:53 Interval history: I saw exam patient today. Patient underwent a cardiac catheterization yesterday and stent was placed, denies chest pain, palpitation, abdomen pain, nausea vomiting diarrhea, focal weakness Exam Narrative: _ GENERAL: Well-appearing, well-nourished, and in no acute distress. HEAD: Normocephalic, atraumatic. EYES: PERRLA and EOMI. ENT: Nares clear, no rhinorrhea or epistaxis.? Mucous membranes moist. NECK: Supple. CHEST: Clear to auscultation.? No respiratory distress. HEART: Regular rate and rhythm. ABDOMEN: Soft, nontender, nondistended. EXTREMITIES: Normal range of motion.? No edema. At right groin, needle inserting inside small ecchymosis, no hematoma SKIN: Warm, dry, no rash. NEURO: No focal deficits.? Alert and oriented x3. PSYCH: Normal mood and affect. Objective Data Vital Signs Vital Signs: Vital Signs - 24 hr 06/15/23 08:31 06/15/23 09:09 06/15/23 10:00 Temperature Pulse Rate 87 75 Respiratory Rate 16 Blood Pressure 121/79 Pulse Oximetry 100 98 Oxygen Delivery Room Air Room Air 06/15/23 10:15 06/15/23 10:30 06/15/23 10:45 Temperature Pulse Rate 60 66 65 Respiratory Rate 20 19 20 Blood Pressure 125/71 115/84 116/81 Pulse Oximetry 99 98 98 Oxygen Delivery Room Air Room Air Room Air 06/15/23 11:00 06/15/23 08:00 06/15/23 11:15 Temperature Pulse Rate 74 100 82 Respiratory Rate 18 19 Blood Pressure 113/87 116/81 Pulse Oximetry 99 98 Oxygen Delivery Room Air Room Air 06/15/23 11:30 06/15/23 11:45 06/15/23 12:00 Temperature Pulse Rate 68 79 77 Respiratory Rate 18 20 20 Blood Pressure 127/82 132/92 H 129/86 Pulse Oximetry 98 99 100 Oxygen Delivery Room Air Room Air Room Air 06/15/23 12:15 06/15/23 13:05 06/15/23 13:10 Temperature Pulse Rate 78 73 77 Respiratory Rate 20 15 18 Blood Pressure 128/82 123/82 133/96 H Pulse Oximetry 98 100 99 Oxygen Delivery Room Air Room Air Room Air 06/15/23 13:35 06/15/23 13:15 06/15/23 13:20 Temperature Pulse Rate 76 81 77 Respiratory Rate 23 H 20 23 H Blood Pre
[2023-06-16] MEDS: ASPIRIN 81 MG CHEWABLE TABLET PO (08:35)
[2023-06-16] MEDS: LOSARTAN POTASSIUM 12.5 MG TABLET PO (08:36)
[2023-06-16] MEDS: ROSUVASTATIN 10 MG TABLET 20 MG PO (08:36)
[2023-06-16] MEDS: ENOXAPARIN 40 MG/0.4 ML SYRINGE SUB-Q (08:37)
[2023-06-16] MEDS: CLOPIDOGREL BISULFATE 75 MG TABLET PO (08:37)
[2023-06-16 08:46] LABS: Anion Gap 7 mmol/L (8-16); Blood Urea Nitrogen 10 mg/dL (9-20); Calcium 9.2 mg/dL (8.4-10.2); Carbon Dioxide 26 mmol/L (22-30); Chloride 104 mmol/L (98-107); Estimated CRCL calculation 129 ml/min; Estimated Glomerular Filt Rate > 60; Glucose 106 mg/dL (65-110); Potassium 4.1 mmol/L (3.4-5.0); Sodium 137 mmol/L (137-145)
[2023-06-16 08:47] LABS: Basophils Percent Auto 0.6 % (0.2-1.2); Eosinophils Absolute Auto 0.1 K/mm3 (0-0.3); Eosinophils Percent Auto 1.1 % (0-4.4); Hematocrit 47.8 % (42.0-52.0); Immature Granulocyte Absolute 0.03 K/mm3 (0.00-0.031); Immature Granulocyte Percent A 0.4 % (0-0.5); Lymphocytes Absolute Auto 2.33 K/mm3 (0.9-3.2); Lymphocytes Percent Auto 32.2 % (18.3-44.2); Mean Corpuscular HGB Conc 33.5 g/dl (32-36); Mean Corpuscular Hemoglobin 31.4 pg (26-34); Mean Corpuscular Volume 93.9 fl (80-100); Mean Platelet Volume 10.2 fl (7.4-10.4); Monocytes Absolute Auto 0.7 K/mm3 (0.1-0.6); Monocytes Percent Auto 9.8 % (2.6-8.5); Neutrophils Absolute Auto 4.1 K/mm3 (1.3-6.7); Neutrophils Percent Auto 55.9 % (45.5-73.1); Platelet Count Result 252 k/mm3 (150-375); Red Blood Count 5.09 M/mm3 (4.6-6.20); White Blood Count 7.2 K/mm3 (4.5-10.0)
--- NOTE | 2023-06-16 11:25 | PM.PNCARD ---
Progress Note: A&P Assessment and Plan (1) Acute non-ST elevation myocardial infarction (NSTEMI): Code(s): I21.4 - Non-ST elevation (NSTEMI) myocardial infarction Status: Acute Assessment and Plan: Patient is status post PCI/KAYY x1 diagonal branch of LAD on 06/15/2023 performed in the setting of non ST elevation [place]. -dual antiplatelet therapy with aspirin and clopidogrel -patient is post IL, add [id number] succinate. -continue high-dose statin. -okay to discharge from cardiac standpoint -follow up with Dr. Avila after hospital discharge (2) Tobacco abuse: Code(s): Z72.0 - Tobacco use Status: Acute Assessment and Plan: Smoking cessation consult was done Subjective Date/time seen: 06/16/23 11:25 Interval history: 06/16/2023-patient reports resolution of chest discomfort. No shortness of breath, palpitation, dizziness or syncope. On telemetry, patient is in sinus rhythm. Exam Narrative: PHYSICAL EXAMINATION: GENERAL: Alert, oriented, no acute distress MENTAL STATUS: Anxious EYES: Extraocular movements intact, no pallor EARS: External ears appear normal, hearing grossly normal NOSE: Normal and patent, no discharge MOUTH: Mucous membranes moist, tongue normal NECK: Supple, no JVD CHEST: Good respiratory effort, clear to auscultation HEART: Normal rate, regular rhythm, normal S1 and S2, no audible murmurs ABDOMEN: Soft, nontender NEUROLOGICAL: Alert, oriented, normal speech, no gross motor deficits MUSCULOSKELETAL: No major deformity, no amputation EXTREMITIES: No pedal edema, no clubbing, no cyanosis; right groin site unremarkable SKIN: no rash on the exposed area, no cyanosis PSYCHIATRIC: Anxious Objective Data Vital Signs Vital Signs: Vital Signs - 24 hr 06/15/23 11:30 06/15/23 11:45 06/15/23 12:00 Temperature Pulse Rate 68 79 77 Respiratory Rate 18 20 20 Blood Pressure 127/82 132/92 H 129/86 Pulse Oximetry 98 99 100 Oxygen Delivery Room Air Room Air Room Air 06/15/23 12:15 06/15/23 13:05 06/15/23 13:10 Temperature Pulse Rate 78 73 77 Respiratory Rate 20 15 18 Blood Pressure 128/82 123/82 133/96 H Pulse Oximetry 98 100 99 Oxygen Delivery Room Air Room Air Room Air 06/15/23 13:35 06/15/23 13:15 06/15/23 13:20 Temperature Pulse Rate 76 81 77 Respiratory Rate 23 H 20 23 H Blood Pressure 125/74 132/93 H 123/81 Pulse Oximetry 98 99 98 Oxygen Delivery Room Air Room Air Room Air 06/15/23 13:25 06/15/23 13:30 06/15/23 13:40 Temperature Pulse Rate 82 83 79 Respiratory Rate 22 H 25 H 24 H Blood Pressure 124/83 124/83 125/80 Pulse Oximetry 98 99 97 Oxygen Delivery Room Air Room Air Room Air 06/15/23 13:55 06/15/23 14:17 06/15/23 14:31 Temperature Pulse Rate 72 76 76 Respiratory Rate 16 16 16 Blood Pressure 117/67 114/72 109/83 Pulse Oximetry 98 99 99 Oxygen Delivery Room Air Room Air Room Air 06/15/23 14:46 06/15/23 15:20 06/15/23 15:50 Temperature 36.8 C 36.8 C Pulse Rate 70 73 70 Respiratory Rate 16 16 14 Blood Pressure 114/76 130/86 130/78 Pulse Oximetry 97 100 98 Oxygen Delivery Room Air 06/15/23 17:02 06/15/23 16:00 06/15/23 18:00 Temperature 36.7 C Pulse Rate 68 69 68 Respiratory Rate 18 Blood Pressure 120/76 Pulse Oximetry 99 Oxygen Delivery 06/15/23 19:00 06/15/23 20:00 06/16/23 00:00 Temperature 36.4 C 36.4 C 36.1 C L Pulse Rate 77 82 75 Respiratory Rate 20 18 18 Blood Pressure 126/90 149/87 H 132/78 Pulse Oximetry 100 100 100 Oxygen Delivery 06/16/23 03:56 06/15/23 20:00 06/15/23 22:00 Temperature 36.3 C L Pulse Rate 68 70 67 Respiratory Rate 18 Blood Pressure 124/74 Pulse Oximetry 100 Oxygen Delivery 06/16/23 00:00 06/16/23 02:00 06/16/23 04:00 Temperature Pulse Rate 61 62 71 Respiratory Rate Blood Pressure Pulse Oximetry Oxygen Delivery 06/16/23 06:00 06/16/23 08:00 06/16/23 08:00 Tem
--- NOTE | 2023-06-16 11:52 | PM.DS ---
DS: Admitting Diagnosis Discharge Date 06/16/23 Admitting Diagnosis (1) Chest pain: ?Code(s): R07.9 - Chest pain, unspecified ?Status:?Acute (2) Palpitation: ?Code(s): R00.2 - Palpitations ?Status:?Acute (3) Acute non-ST elevation myocardial infarction (NSTEMI): ?Code(s): I21.4 - Non-ST elevation (NSTEMI) myocardial infarction ?Status:?Acute DS: Discharge Diagnosis Discharge Diagnosis (1) Chest pain: Code(s): R07.9 - Chest pain, unspecified Status: Acute (2) Palpitation: Code(s): R00.2 - Palpitations Status: Acute (3) Acute non-ST elevation myocardial infarction (NSTEMI): Code(s): I21.4 - Non-ST elevation (NSTEMI) myocardial infarction Status: Acute DS: Summary Hospital Course Hospital Course: Per H&P, 27 yo male with no significant past medical history, who presented to the ER on account of chest pain and palpitations. Patient stated that he started having palpitations on Sunday associated with the chest pressure none bony pain.? These episodes intermittent, asymptomatic noted neck pain with radiation to bilateral upper extremities associated with the numbness the tingling. Symptoms has been intermittent.? However into the day yesterday symptoms worsened prompting him to present to the ER for poor condition and care. Patient Denies any abdominal pain, no vomiting, no nausea lower extremity weakness no dysuria no loss of consciousness. labs in the interval troponin 0.425, white count 11, urine drug screen positive for cannabinoids.? CT head and neck CT chest, CTA head and neck unremarkable. The following medical issues have been addressed during hospitalization NSTEMI Palpitations, chest pain Continue metoprolol cardiology Echo ? 1. Left ventricular chamber dimension is normal. ? 2. Left ventricular systolic function is normal, estimated at 60-65%. ? 3. There is no increased left ventricular wall thickness. ? 4. The left ventricular diastolic function is normal. ? 5. No pulmonary hypertension, estimated pulmonary arterial systolic pressure is 32 mmHg. obtain treadmill nuclear stress test revealed possible cardiac ischemia, 07/16 cardiac catheterization 1.? ? Left coronary dominant circulation with single-vessel disease high-grade 95-99% stenosis in the long but smaller caliber diagonal branch of the LAD. 2.? ? Successful PCI of this lesion using the were 0 drug-eluting stent as described above which was post dilated with a 2.5 mm high-pressure balloon and angiographic result was very good. 3.? ? Preserved left ventricular systolic function continue Metoprolol 12.5mg bid, and Aspirin at Plavix since then 5 mg daily p.o. 07/17 No chest pain, shortness breast, palpitation, needle insertion site and right groin I small ecchymosis no hematoma. Patient is afebrile, blood pressure stable Essential hypertension Start losartan 25 mg daily p.o., metoprolol succinate 25 mg daily p.o. Hyperlipidemia Continue Crestor 20 mg daily p.o. Neck pain and upper extremity numbness or tingling Rule out stroke and spinal cord pathology CTA head and neck and chest were unremarkable MRI brain cervical spine ordered, it reveals Probable minimal degenerative spondylosis at C4-C5 Monitor [employer] has agreed to discharge patient today Time Spent with Patient Time attestation: Total time spent providing and/or coordinating discharge services: Exam Narrative: _ GENERAL: Well-appearing, well-nourished, and in no acute distress. HEAD: Normocephalic, atraumatic. EYES: PERRLA and EOMI. ENT: Nares clear, no rhinorrhea or epistaxis.? Mucous membranes moist. NECK: Supple. CHEST: Clear to auscultation.? No respiratory distress. HEART: Regular rate and rhythm. ABDOMEN: Soft, nontender, nondistended. EXTREMITIES: Normal range of motion.? No edema. At right groin, needle inserting inside small ecchymosis, no hematoma SKIN: Warm, dry, no rash. NEURO: No focal deficits.? Fab
== END 2023-06-16 13:40 | disposition home or self-care (01) | DRG 174 ==
LOC: ANHED 06-13 00:55 → ANHIMU 06-13 03:36
PROVIDERS: Internal Medicine; Internal Medicine Cardiovascular Disease; Specialist; Student in an Organized Health Care Education/Training Program; Admitting Provider Internal Medicine; Emergency Provider Emergency Medicine; Visit Provider Hospitalist
PROC: 4A023N7 Measurement of Cardiac Sampling and Pressure, Left Heart, Percutaneous Approach (ICD-10-PCS; CPT 93452; principal; 2023-06-15 12:00)
PROC: 027034Z Dilation of Coronary Artery, One Artery with Drug-eluting Intraluminal Device, Percutaneous Approach (ICD-10-PCS; 2023-06-15 12:00)
DX: I21.4 Non-ST elevation (NSTEMI) myocardial infarction (principal); F12.90 Cannabis use, unspecified, uncomplicated; I25.10 Atherosclerotic heart disease of native coronary artery without angina pectoris; R00.2 Palpitations; R20.0 Anesthesia of skin; F17.210 Nicotine dependence, cigarettes, uncomplicated
CPT/HCPCS: 36415; 70496; 70498; 70553; 71046; 71275; 72156; 78452; 80048; 80053; 80061; 80307; 83605; 83690; 83735; 84443; 84484; 85025; 85610; 85652; 85730; 86038; 86140; 93005; 93017; 93458; 96365; 96366; 96372; 96375; 99285; A9270; A9502; A9577; C1725; C1769; C1874; C1887; C1894; C8929; C9600; G0378; J0583; J1644; J1650; J1885; J2250; J2305; J3010; J7030; J7040; Q9957; Q9967

== ENCOUNTER 2024-05-30 08:58 | Emergency (ER) | payer OTHER, SELFPAY ==
--- NOTE | ~2024-05-30 | US_ITS ---
TESTICULAR ULTRASOUND (Doppler ultrasound interrogation techniques used as needed for this exam.) Ordering provider: Fabio Brandon MD History: . Right testicular pain . Comparison: None. FINDINGS: TESTICLES: Normal in size. The right measures 5.2x 2.1x 4.1 cm and the left measures 4.6x 2.3x 3.7 cm . Normal echogenicity bilaterally without mass lesion. Normal Doppler flow bilaterally. EPIDIDYMIDES: Normal in size. The right measures 3x 0.9x 1 cm and the left 0.7x 1.2x 0.7 cm. Normal e chogenicity bilaterally. Slightly increased vascularity in the right epididymis is possible. Otherwis e Both demonstrate Doppler flow. HYDROCELE: Small left. VARICOCELE: None. OTHER ABNORMALITY: None seen. IMPRESSION: Small left hydrocele. Possible right epididymitis Clinical correlation advised. Otherwise, normal pete ticular ultrasound. Reviewed, dictated and finalized at location A. IMPRESSION: Small left hydrocele. Possible right epididymitis Clinical correlation advised. Otherwise, normal testicular ultrasound.
[2024-05-30 09:00] VITALS: BP 148/96; PULSE 102; RESP 18; TEMP 36.6; O2SAT 100
--- NOTE | 2024-05-30 10:27 | ED.MALEGU ---
HPI - Male Genitourinary General Chief complaint: Urogenital-Male Stated complaint: Testicular pain Time Seen by Provider: 05/30/24 09:09 Source: patient Mode of arrival: ambulatory Limitations: no limitations History of Present Illness HPI Narrative: This is a 28-year-old male, with history of coronary artery disease status post stenting, presents to the emergency department complaining of right testicular pain for the past hour. The patient states he woke and felt severe right testicular pain, described as dull and intermittently sharp initially rated 8/10, now 3/10. He states he rotated testicle with some improvement, though is not sure which direction he turned it. He denies fevers, chills, other abdominal pain or dysuria. He states he his last sexual contact was 1 month ago. He has no other complaints at this time. Related Data Allergies Allergy/AdvReac Type Severity Reaction Status Date / Time No Known Allergies Allergy Verified 05/30/24 09:11 Review of Systems Review of Systems: All systems reviewed & are unremarkable except as noted in HPI and below PMFSH Past Medical History Medical History Acute non-ST elevation myocardial infarction (NSTEMI) Marijuana use Surgical History Surgical History Status post coronary artery stent placement Family History Family History Father Carcinoma of colon Social History Social History Smoking packs per day: 1 Smoking cigarettes per day: 20.0 Years smoked: 5 Smoking pack-years: 5.00 Smoking status: Current every day smoker Tobacco type: e-cigarettes/vaping Alcohol intake: current Drinks per week: 4 Substance use: current Substance use type: marijuana Lack of Transportation: No Lack of Food: Sometimes True Current Housing: I Have Housing Concerned About Future Housing: No Difficulty Paying Gas/Electric Bills: No Difficulty Paying for Meds: No Currently Unemployed: YES Education: High School Diploma/GED Difficulty w/ Childcare or Family Care: No Spiritual care concerns: No Exam Narrative: GENERAL: Well-developed, well-nourished, and in no acute distress. HEAD: Normocephalic, atraumatic. EYES: PERRLA and EOMI. CHEST: Clear to auscultation. No respiratory distress. No wheezes rales or rhonchi HEART: Regular rate and rhythm. No murmur heard. Normal peripheral pulses. ABDOMEN: Soft, nontender, nondistended, normal active bowel sounds. No noted hernia with Valsalva : Normal external male genitalia, circumcised. Tender to palpation at the posterior aspect of the right testicle at the epididymis. Cremasteric reflex intact. The testicles have a normal appearing lie. There is no noted erythema, induration, or crepitus SKIN: Warm, dry, no rash. NEURO: Alert and oriented x3. No focal deficit. Moving all 4 limbs spontaneously PSYCH: Normal mood and affect. Course Course Emergency Course: 10:25 - Ultrasound not concerning for torsion and demonstrates changes in the right epididymis consistent with epididymitis. Considering the patient's sexual activity, will treat as though this may be related STI. I discussed these findings with the patient who agrees. UA pending. 10:36 - UA demonstrates trace leukocyte esterase and ketones but is otherwise not concerning for UTI. patient was given IM Rocephin in the emergency department. Will discharge with oral doxycycline and recommendation for primary care follow-up. I discussed the findings and recommendations with the patient. Discussed return and emergency precautions including signs/symptoms of testicular torsion and acute abdomen. The patient voiced understanding and agreement with the plan. All questions answered to his satisfaction. Vital Signs Vital signs: Vital Signs Temperature 97.9 F 05/30/24 09:
[2024-05-30] MEDS: LIDOCAINE HCL 1% IM (10:38)
[2024-05-30] MEDS: CEFTRIAXONE 0.5 GM IM (10:38)
[2024-05-30] MEDS: DOXYCYCLINE HYCLATE 100 MG TABLET PO (10:43)
[2024-05-30 10:52] LABS: Add Urine Microscopic? YES; Appearance Urine Clear (Clear); Bilirubin Urine Negative (Negative); Blood Urine Negative (Negative); Color Urine Yellow (Yellow); Glucose Urine UA Negative (Negative); Ketones Urine 2+ mg/dL (Negative); Leukocyte Esterase Ur Trace LEU/UL (Negative); Nitrate Urine Negative (Negative); Protein Urine 1+ mg/dL (Negative); Specific Grav Ur 1.024 (1.001-1.035); pH Urine 6.5 (5.0-9.0)
--- NOTE | 2024-05-30 11:06 | PC.NURSE ---
Notified by lab urine specimen was not enough. Informed pt. pt unable to urinate at this time.
[2024-05-30 11:14] LABS: Squamous Epithelial Cell Urine Rare /hpf (Few); WBC Urine 0-3 /hpf (0-3)
[2024-05-30 11:15] LABS: Bacteria Urine None seen /hpf
[2024-05-30 13:31] LABS: Chlamydia trachomatis NOT DETECTED (NOT DETECTE); Neisseria gonorrhoeae PCR NOT DETECTED (NOT DETECTE)
== END 2024-05-30 11:55 | disposition home or self-care (01) ==
PROVIDERS: Emergency Provider Preventive Medicine Aerospace Medicine
DX: N50.811 Right testicular pain (principal); N45.1 Epididymitis; I25.10 Atherosclerotic heart disease of native coronary artery without angina pectoris; F17.290 Nicotine dependence, other tobacco product, uncomplicated
CPT/HCPCS: 76870; 81001; 87491; 87591; 93976; 96372; 99284; A9270; J0696